=== PATIENT | male | born 1985 | race Two or more races ===

== ENCOUNTER 2024-05-17 18:31 | Emergency (ER) | payer OTHER ==
[~2024-05-17] VITALS: Ht 170.2 cm; Wt 77.1 kg
[2024-05-17] MEDS ORDERED: LIDOCAINE HCL 1% 10ML VIAL ONE (19:21)
[2024-05-17] MEDS ORDERED: TETANUS & DIPHTHERIA TOX,ADULT 0.5 ML VIAL IM ONE (20:15)
[2024-05-17] MEDS ORDERED: CEFTRIAXONE SODIUM 1,000 MG VIAL IM ONE (20:15)
[2024-05-17] MEDS ORDERED: CEFTRIAXONE SODIUM 1,000 MG VIAL ONE (20:24)
[2024-05-17] MEDS ORDERED: TETANUS DIPHTHERIA TOX. ADSOR 5 ML VIAL IM ONE (20:24)
== END 2024-05-17 20:35 | disposition home or self-care (01) ==
LOC: ER 18:32
DX: S01.81XA Laceration without foreign body of other part of head, initial encounter (principal); X58.XXXA Exposure to other specified factors, initial encounter; Y93.89 Activity, other specified; Y92.89 Other specified places as the place of occurrence of the external cause; Y99.8 Other external cause status

== ENCOUNTER 2024-05-23 18:24 | Emergency (ER) | payer OTHER ==
[~2024-05-23] VITALS: Ht 170.2 cm; Wt 74.8 kg
== END 2024-05-23 20:58 | disposition home or self-care (01) ==
LOC: ER 18:25
DX: Z48.02 Encounter for removal of sutures (principal)

== ENCOUNTER 2024-11-27 19:40 | Emergency (ER) | payer OTHER ==
[~2024-11-27] VITALS: Ht 162.6 cm; Wt 72.6 kg
[2024-11-27 20:49] LABS: HEMOGLOBIN 13.9 g/dL (13-16.00); MEAN CORPUSCULAR HEMOGLOBIN 30.8 pg (27.00-32.0); MEAN CORPUSCULAR HGB CONC 34.6 g/dl (32.0-36.0); PLATELET COUNT 276 K/uL (150-450)
[2024-11-27 21:22] LABS: URINE APPEARANCE Clear; URINE BILIRRUBIN Negative (NEGATIVE); URINE BLOOD Negative; URINE COLOR Yellow; URINE GLUCOSE Negative (NEGATIVE); URINE KETONE Negative (NEGATIVE); URINE LEUKOCYTE Negative; URINE NITRATE Negative; URINE PROTEIN Negative (NEGATIVE)
[2024-11-27 21:23] LABS: AMYLASE 198 U/L (25-115)
[2024-11-27 21:24] LABS: ALBUMIN 4.1 gm/dL (3.4-5.0); BILIRUBIN TOTAL 0.63 mg/dL (0.3-1.2); CALCIUM 9.1 mg/dL (8.5-10.1); CREATININE SERUM 0.81 mg/dL (0.70-1.30); GFR 107.82; GLOBULINA 3.2 G/DL (2.4-3.5); POTASSIUM 4.16 mEq/L (3.5-5.1); TOTAL PROTEIN 7.3 gm/dL (6.4-8.2)
[2024-11-27 21:25] LABS: URINE BACTERIA 6.1 uL (0.0-1933); URINE WBC 6.3 uL (0.0-23.2)
[2024-11-27 21:26] LABS: URINE RBC 1.6 uL (0.0-20.8)
[2024-11-27 21:26] LABS: LIPASE 421 U/L (13-75)
== END 2024-11-27 22:22 | disposition home or self-care (01) ==
LOC: ER 19:42
PROVIDERS: General Practice
DX: R53.1 Weakness (principal); R10.9 Unspecified abdominal pain

== ENCOUNTER 2025-06-03 18:52 | Emergency (ER) | payer OTHER ==
[~2025-06-03] VITALS: Ht 165.1 cm; Wt 68.0 kg
[2025-06-03] MEDS ORDERED: 0.9 % SODIUM CHLORIDE 1,000 ML IV STA (21:46)
[2025-06-03 22:07] LABS: BASO % 0.7 % (0.1-1.2); EOS # 0.19 (0.04-0.54); EOS % 2.7 % (0.7-7.0); LYMPH # 2.82 (1.18-3.74); LYMPH % 39.6 % (19.3-53.1); MEAN PLATELET VOLUME 9.30 fl (9.4-12.4); MONO # 0.65 (0.24-0.82); MONO % 9.1 % (4.7-12.5); NEUT # 3.41 (1.56-6.13); NEUT % 47.8 % (34.0-71.1); RED CELL DISTRIBUTION WIDTH 11.7 % (11.6-14.4)
[2025-06-03 22:30] LABS: INR 1.05
[2025-06-03 22:33] LABS: ALT/SGPT 29.0 U/L (12-78); AST/SGOT 18.0 U/L (15-37); BILIRUBIN TOTAL 0.49 mg/dL (0.3-1.2); BUN CREA RATIO 13.0 (7.0-25.0); CREATININE SERUM 0.89 mg/dL (0.70-1.30); GFR 96.18; GLOBULINA 3.5 G/DL (2.4-3.5); GLUCOSE FASTING 87.0 mg/dL (65-100); OSMOLALITY SERUM 284.0 MOSM/KG (275-295)
[2025-06-04 01:15] LABS: FECAL LEUKOCYTES NEGATIVE (NEGATIVE); ob POSITIVE (NEGATIVE)
[2025-06-04] MEDS ORDERED: METRONIDAZOLE/SODIUM CHLORIDE 500 MG/100 ML PIGGYBACK IV STA (01:21)
[2025-06-04] MEDS ORDERED: CIPROFLOXACIN IN 5 % DEXTROSE 400 MG/200 ML PIGGYBAG IV STA (01:21)
[2025-06-04] MEDS ORDERED: CIPRO500 MG PO (06:00)
[2025-06-04] MEDS ORDERED: PEPCID40 MG PO (06:00)
[2025-06-04] MEDS ORDERED: INTESTINEX680 M1 PO (06:00)
== END 2025-06-04 06:32 ==
LOC: ER 18:52
DX: K52.89 Other specified noninfective gastroenteritis and colitis (principal); R10.9 Unspecified abdominal pain; K57.30 Diverticulosis of large intestine without perforation or abscess without bleeding